=== PATIENT | male | born 1945 | race Caucasian/White ===

== ENCOUNTER → 2016-04-29 | Outpatient (CLI) | payer MEDICARE, OTHER | LOC: YCHH 09:41 | PROVIDERS: ATTEND Family Medicine | DX: I10 Essential (primary) hypertension (principal); N18.9 Chronic kidney disease, unspecified; E78.5 Hyperlipidemia, unspecified; E03.9 Hypothyroidism, unspecified; D64.9 Anemia, unspecified; N39.0 Urinary tract infection, site not specified; Z12.5 Encounter for screening for malignant neoplasm of prostate | CPT/HCPCS: 80053; 80061; 81001; 84443; 85025; G0103 ==

== ENCOUNTER → 2016-05-19 | Outpatient (CLI) | payer MEDICARE, OTHER ==
--- NOTE | 2016-05-19 14:21 | US ---
EXAM DESCRIPTION: Renal ultrasound. CLINICAL HISTORY: Left complex renal cyst. COMPARISON: February 16, 2016 TECHNIQUE: Real-time imaging was performed by an radiology ct technologist. Uniforms Sales Representative static images have been submitted for review. FINDINGS: The right kidney measures 10.5 cm in diameter, left measures 10.1. No evidence of obstruction. There is a 2 cm left upper pole heterogeneous focus. This demonstrates both hypoechogenic signal and echogenic signal. The remaining kidneys are unremarkable. IMPRESSION: Ill-defined hypo and hyperechoic focus seen within the mid-upper left pole left kidney. 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 Recommend non emergent MRI with contrast for further evaluation. No additional findings noted. . Electronically signed by: Edd Izquierdo MD 05/19/2016 14:19
== END | disposition home or self-care (01) ==
LOC: RAD 09:35
PROVIDERS: ATTEND Urology
DX: N28.1 Cyst of kidney, acquired (principal)

== ENCOUNTER → 2017-03-29 | Outpatient (CLI) | payer MEDICARE, OTHER | END | disposition home or self-care (01) | LOC: LAB.O 15:10 | PROVIDERS: ATTEND Urology | DX: R97.20 Elevated prostate specific antigen [PSA] (principal) ==

== ENCOUNTER → 2017-04-06 | Outpatient (CLI) | payer MEDICARE, OTHER ==
--- NOTE | 2017-04-06 11:10 | US ---
EXAM DESCRIPTION: Renal ultrasound CLINICAL HISTORY: 71 years Male, L COMPLEX RENAL CYST COMPARISON: May 19, 2016 TECHNIQUE: Real-time sonographic images of the kidneys are obtained. FINDINGS: Right kidney measures 9.5 x 5.6 x 6.0 cm. The left kidney measures 11.0 x 7.0 x 6.0 cm. No evidence of hydronephrosis. There is a mass on the mid to upper pole left kidney measuring 2.0 x 2.2 x 1.9 cm that shows areas of focal increased echogenicity with adjacent anechoic to hypoechoic area similar to previous exam. Previously this lesion measures 1.9 x 2.0 x 1.8 cm. IMPRESSION: Overall stable ill-defined hypoechoic and hyperechoic focus within the mid to upper pole left kidney. 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 This is relatively stable in size and appearance compared to multiple prior examinations dating back to November 2008. Electronically signed by: Cliff Durán MD 04/06/2017 11:09 AM [facility]
== END | disposition home or self-care (01) ==
LOC: US 08:24
PROVIDERS: ATTEND Urology
DX: N28.1 Cyst of kidney, acquired (principal)

== ENCOUNTER → 2017-06-13 | Outpatient (CLI) | payer MEDICARE, OTHER | LOC: GMAB 10:43 | PROVIDERS: ATTEND Family Medicine | DX: I10 Essential (primary) hypertension (principal); Z12.5 Encounter for screening for malignant neoplasm of prostate | CPT/HCPCS: 84443; G0103 ==

== ENCOUNTER → 2018-07-10 | Outpatient (CLI) | payer MEDICARE, OTHER | LOC: GMAE 10:42 | PROVIDERS: ATTEND Family Medicine | DX: I10 Essential (primary) hypertension (principal); Z12.5 Encounter for screening for malignant neoplasm of prostate | CPT/HCPCS: 84443; G0103 ==

== ENCOUNTER → 2018-07-18 | Outpatient (CLI) | payer MEDICARE, OTHER ==
--- NOTE | 2018-07-18 11:15 | US ---
EXAM DESCRIPTION: Aorta: Ultrasound. CLINICAL HISTORY: AAA COMPARISON: Ultrasound renal March 2017. TECHNIQUE: Transcutaneous scanning: Two-dimensional and Doppler modes. FINDINGS: Abdominal aorta diameter - Proximal: 2.0 x 2.2 x 1.9 cm. Mid: 1.9 x 1.8 x 1.8 cm. Distal: 1.7 x 1.6 cm. Common Iliac diameter - Right: 10 mm. Left: 11 mm. Other: Atherosclerotic echogenic plaque is visualized. IMPRESSION: Normal caliber of the abdominal aorta and the proximal iliac arteries. No aneurysm or stenosis. Electronically signed by: Melchor Sabillon MD 07/18/2018 11:12 AM CDT
== END ==
LOC: US 08:00
PROVIDERS: ATTEND Family Medicine
DX: Z13.89 Encounter for screening for other disorder (principal)

== ENCOUNTER → 2019-07-30 | Outpatient (CLI) | payer MEDICARE, OTHER | LOC: GMAM 11:11 | PROVIDERS: ATTEND Family Medicine | DX: Z12.5 Encounter for screening for malignant neoplasm of prostate (principal); R53.82 Chronic fatigue, unspecified; E78.2 Mixed hyperlipidemia; I10 Essential (primary) hypertension; E29.9 Testicular dysfunction, unspecified | CPT/HCPCS: 84403; 84439; 84443; G0103 ==